=== PATIENT | male | born 1960 | race Caucasian/White ===

== ENCOUNTER 2017-07-21 13:52 | Inpatient (IN) | payer MEDICAID ==
[~2017-07-21] VITALS: Ht 180.3 cm; Wt 102.1 kg
[2017-07-21] MEDS ORDERED: FLUO20CA33 PO (14:09)
[2017-07-21] MEDS ORDERED: QUET25TA PO (14:09)
[2017-07-21] MEDS ORDERED: SODIUM CHLORIDE 0.9% 1,000 ML IV ONE (14:46)
[2017-07-21 15:27] LABS: HEMATOCRIT. 36.3 % (42.0-52.0); HEMOGLOBIN. 12.2 g/dL (14.0-18.0); MEAN CORPUSCULAR HEMOGLOBIN 29.2 pg (28.0-32.0); MEAN PLATELET VOLUME 8.8 fl (7.4-10.4); PLATELET 86 x1000/uL (130-400); RED BLOOD CELL COUNT 4.18 mill/uL (4.7-6.1); RED CELL DISTRIBUTION WIDTH 13.1 % (11.6-14.6)
[2017-07-21 15:32] LABS: CHLORIDE 108 mEq/L (98-107)
[2017-07-21 15:35] LABS: CARBON DIOXIDE 22 mEq/L (21-32); INR 1.3
[2017-07-21 15:42] LABS: ETHANOL BLOOD < 10 mg/dL; TROPONIN I < 0.02 ng/mL (0.00-0.04)
[2017-07-21 16:11] LABS: PLATELET ESTIMATE SLIGHTLY DECREASED
[2017-07-21] MEDS ORDERED: ONDANSETRON HCL 4MG/2ML VIAL IV ONE ×2 (17:15→19:45)
[2017-07-21] MEDS ORDERED: MORPHINE SULFATE 4 MG/ML CPJ (NOT FOR IM USE) IV ONE ×2 (17:15→19:45)
[2017-07-21 17:25] LABS: CLARITY URINE CLEAR (CLEAR); COLOR URINE YELLOW (YELLOW); GLUCOSE URINE NEGATIVE (NEGATIVE); KETONES URINE NEGATIVE (NEGATIVE); LEUKOCYTE ESTERASE URINE NEGATIVE (NEGATIVE); NITRITE URINE NEGATIVE (NEGATIVE); OCCULT BLOOD URINE NEGATIVE (NEGATIVE); PROTEIN URINE NEGATIVE (NEGATIVE); SPECIFIC GRAVITY URINE 1.007 (1.005-1.030)
[2017-07-22] VITALS (7 sets, daily range): BP systolic 110–124; BP diastolic 67–74
[2017-07-22] MEDS ORDERED: ONDANSETRON HCL 4MG/2ML VIAL IV PRN (05:15)
[2017-07-22] MEDS ORDERED: IPRATROPIUM/ALBUTEROL 0.5-3(2.5)MG/3ML NEB INH PRN (05:15)
[2017-07-22] MEDS ORDERED: GUAIFENESIN 200MG/10ML SUGAR FREE UDC PO PRN (05:15)
[2017-07-22] MEDS ORDERED: DIPHENHYDRAMINE 50MG/ML VIAL IV PRN (05:15)
[2017-07-22] MEDS ORDERED: ACETAMINOPHEN 325MG TABLET PO PRN (05:15)
[2017-07-22] MEDS: SODIUM CHLORIDE 0.9% INJ 3ML FLUSH IVF SCH ×3 (06:22→21:38)
[2017-07-22] MEDS ORDERED: MAGNESIUM HYDROXIDE 400MG/5ML 30ML UDC PO PRN (07:30)
[2017-07-22] MEDS ORDERED: QUETIAPINE FUMARATE 25MG TABLET PO SCH (09:00)
[2017-07-22] MEDS: HYDROCODONE/ACETAMINOPHEN 10/325MG TABLET PO PRN ×2 (13:00→19:57)
[2017-07-22] MEDS: FLUOXETINE HCL 20MG CAPSULE PO SCH (21:37)
[2017-07-22] MEDS: QUETIAPINE FUMARATE 100MG TABLET PO SCH (21:38)
[2017-07-23] VITALS: BP 112/78
[2017-07-23 04:00] VITALS: BP 126/72
[2017-07-23] MEDS: SODIUM CHLORIDE 0.9% INJ 3ML FLUSH IVF SCH ×3 (05:57→20:58)
[2017-07-23 08:00] VITALS: BP 112/70
[2017-07-23] MEDS: FLUOXETINE HCL 20MG CAPSULE PO SCH (09:12)
[2017-07-23] MEDS: HYDROCODONE/ACETAMINOPHEN 10/325MG TABLET PO PRN ×2 (09:12→21:01)
[2017-07-23 12:00] VITALS: BP 117/68
[2017-07-23 16:12] VITALS: BP 117/75
[2017-07-23 20:00] VITALS: BP 118/85
[2017-07-23] MEDS: QUETIAPINE FUMARATE 100MG TABLET PO SCH (20:58)
[2017-07-24] VITALS: BP 113/62
[2017-07-24 04:00] VITALS: BP 118/68
[2017-07-24] MEDS: SODIUM CHLORIDE 0.9% INJ 3ML FLUSH IVF SCH ×3 (06:00→21:35)
[2017-07-24] MEDS: FLUOXETINE HCL 20MG CAPSULE PO SCH (07:50)
[2017-07-24] MEDS: HYDROCODONE/ACETAMINOPHEN 10/325MG TABLET PO PRN ×3 (07:51→18:53)
[2017-07-24 08:00] VITALS: BP 116/71
[2017-07-24 12:00] VITALS: BP 121/74
[2017-07-24 17:27] VITALS: BP 109/68
[2017-07-24 20:00] VITALS: BP 101/60
[2017-07-24] MEDS: QUETIAPINE FUMARATE 100MG TABLET PO SCH (21:35)
[2017-07-25] VITALS: BP 99/59
[2017-07-25] MEDS: HYDROCODONE/ACETAMINOPHEN 10/325MG TABLET PO PRN ×3 (01:22→16:59)
[2017-07-25 04:00] VITALS: BP 96/60
[2017-07-25] MEDS: SODIUM CHLORIDE 0.9% INJ 3ML FLUSH IVF SCH ×3 (06:18→21:51)
[2017-07-25 08:00] VITALS: BP 99/51
[2017-07-25] MEDS: FLUOXETINE HCL 20MG CAPSULE PO SCH (09:12)
[2017-07-25 12:00] VITALS: BP 105/61
[2017-07-25] MEDS ORDERED: LACTULOSE 20G/30ML UDC PO NR (16:00)
[2017-07-25 19:03] VITALS: BP 112/66
[2017-07-25 20:00] VITALS: BP 111/65
[2017-07-25] MEDS: QUETIAPINE FUMARATE 100MG TABLET PO SCH (20:29)
[2017-07-26] VITALS (7 sets, daily range): BP systolic 106–111; BP diastolic 62–70
[2017-07-26] MEDS: HYDROCODONE/ACETAMINOPHEN 10/325MG TABLET PO PRN ×2 (00:13→09:12)
[2017-07-26] MEDS: SODIUM CHLORIDE 0.9% INJ 3ML FLUSH IVF SCH (05:53)
[2017-07-26] MEDS: FLUOXETINE HCL 20MG CAPSULE PO SCH (09:06)
== END 2017-07-26 15:25 | disposition home or self-care (01) | DRG 347 ==
LOC: ER 14:52 → 8WST 21:33 → CANRESERV 22:22 → ENRESERV 22:22 → CANRESERV 22:53 → ENRESERV 22:53 → EDBEDREQSVC 07-22 00:19 → ENRESERV 07-22 01:45
PROVIDERS: ADMIT Internal Medicine; ATTEND Internal Medicine
DX: S32.039A Unspecified fracture of third lumbar vertebra, initial encounter for closed fracture (principal); E44.0 Moderate protein-calorie malnutrition; E87.8 Other disorders of electrolyte and fluid balance, not elsewhere classified; I48.91 Unspecified atrial fibrillation; I10 Essential (primary) hypertension; F32.9 Major depressive disorder, single episode, unspecified; J44.9 Chronic obstructive pulmonary disease, unspecified; K21.9 Gastro-esophageal reflux disease without esophagitis; F41.9 Anxiety disorder, unspecified; F99 Mental disorder, not otherwise specified; B19.20 Unspecified viral hepatitis C without hepatic coma; Z79.899 Other long term (current) drug therapy; Z72.0 Tobacco use; Z95.0 Presence of cardiac pacemaker; Z85.05 Personal history of malignant neoplasm of liver; Z85.72 Personal history of non-Hodgkin lymphomas; Y08.89XA Assault by other specified means, initial encounter; Y92.512 Supermarket, store or market as the place of occurrence of the external cause; Y93.89 Activity, other specified; Y99.8 Other external cause status
CPT/HCPCS: 36415; 71010; 74176; 80053; 81003; 83605; 83880; 84484; 85025; 85610; 87040; 87086; 93005; 93970; 96374; 96375; 96376; 97116; 97162; 97166; 97530; 99285; G0482; J2270; J2405; J7030

== ENCOUNTER 2017-08-02 10:35 | Inpatient (IN) | payer MEDICAID ==
[~2017-08-02] VITALS: Ht 182.9 cm; Wt 72.6 kg
[~2017-08-02 10:35] MED LIST: FLUO20CA33 PO; QUET25TA PO
[2017-08-02] MEDS ORDERED: SODIUM CHLORIDE 0.9% 1000ML BAG (SEPSIS BOLUS) IV ONE (10:45)
[2017-08-02 11:21] LABS: BG CARBOXYHEMOGLOBIN 0.4 % (0.5-1.5); BG DEOXYHEMOGLOBIN 3.5 % (0.0-5.0); BG FRACTION INSPIRED OXYGEN 21; BG HCO3 ACT 19.7 mmol/L (22.0-26.0); BG METHEMOGLOBIN 0.1 % (0.0-1.5); BG OXYGEN SATURATION 96.5 % (92.0-98.5); BG PCO2 29.2 mmHg (35.0-45.0); BG PH 7.448 (7.350-7.450); BG SAMPLE SITE RIGHT BRACHIAL; BG VENT MODE ROOM AIR
[2017-08-02 11:35] LABS: HEMOGLOBIN. 13.5 g/dL (14.0-18.0); MEAN CORPUSCULAR HEMOGLOBIN 29.7 pg (28.0-32.0); MEAN CORPUSCULAR VOLUME 86.2 fL (80.0-94.0); PLATELET 114 x1000/uL (130-400); RED BLOOD CELL COUNT 4.53 mill/uL (4.7-6.1)
[2017-08-02 11:37] LABS: CHLORIDE 106 mEq/L (98-107)
[2017-08-02 11:38] LABS: INR 1.4; PARTIAL THROMBOPLASTIN TIME 25.3 sec (23.4-31.0)
[2017-08-02 11:47] LABS: CARBON DIOXIDE 24 mEq/L (21-32); ETHANOL BLOOD < 10 mg/dL; TROPONIN I < 0.02 ng/mL (0.00-0.04)
[2017-08-02 11:59] LABS: CLARITY URINE CLOUDY (CLEAR); COLOR URINE DARK YELLOW (YELLOW); GLUCOSE URINE NEGATIVE (NEGATIVE); KETONES URINE TRACE (NEGATIVE); LEUKOCYTE ESTERASE URINE TRACE (NEGATIVE); NITRITE URINE NEGATIVE (NEGATIVE); OCCULT BLOOD URINE 3+ (NEGATIVE); PROTEIN URINE NEGATIVE (NEGATIVE); SPECIFIC GRAVITY URINE 1.025 (1.005-1.030)
[2017-08-02] MEDS ORDERED: CEFTRIAXONE 1 G PREMIX 50 ML IV ONE (12:00)
[2017-08-02 12:14] LABS: *AMPHETAMINES SCREEN URINE NEGATIVE (NEGATIVE); *BARBITURATES SCREEN URINE NEGATIVE (NEGATIVE); *BENZODIAZEPINES SCREEN URINE NEGATIVE (NEGATIVE); *COCAINE SCREEN URINE NEGATIVE (NEGATIVE); CANNABINOID URINE SCREEN NEGATIVE (NEGATIVE); METHADONE URINE SCREEN NEGATIVE (NEGATIVE); OPIATES URINE SCREEN PRESUMTIVE POSITIVE (NEGATIVE); PHENCYCLIDINE URINE SCREEN NEGATIVE (NEGATIVE)
[2017-08-02] MEDS ORDERED: CEFTRIAXONE 1 G PREMIX 50 ML IV SCH (12:30)
[2017-08-02] MEDS ORDERED: ACETAMINOPHEN 325MG TABLET PO PRN (12:30)
[2017-08-02] MEDS ORDERED: ONDANSETRON HCL 4MG/2ML VIAL IV PRN (12:30)
[2017-08-02] MEDS ORDERED: LORAZEPAM 2MG/ML CPJ IV PRN (12:30)
[2017-08-02 12:32] LABS: PLATELET ESTIMATE SLIGHTLY DECREASED
[2017-08-02] MEDS ORDERED: LEVOFLOXACIN 500MG PREMIX 100 ML IV ONE (14:30)
[2017-08-02] MEDS ORDERED: LACTULOSE 20G/30ML UDC PO NR (15:15)
[2017-08-02 15:36] LABS: CREATINE KINASE 339 IU/L (39-308)
[2017-08-02 16:29] LABS: AMMONIA 72 uMol/L (<32)
[2017-08-02 20:00] VITALS: BP 139/78
[2017-08-02] MEDS ORDERED: MVI, ADULT NO.1 10 ML, FOLIC ACID 1 MG, THIAMINE HCL 100 MG in SODIUM CHLORIDE 0.9% 1,0... IV NR ×4 (20:00)
[2017-08-02] MEDS: FLUOXETINE HCL 20MG CAPSULE PO SCH (20:47)
[2017-08-02] MEDS: QUETIAPINE FUMARATE 25MG TABLET PO SCH (20:47)
[2017-08-02 22:16] VITALS: BP 139/78
[2017-08-03] VITALS: BP 132/79
[2017-08-03 00:26] LABS: CREATINE KINASE 250 IU/L (39-308)
[2017-08-03 04:00] VITALS: BP 131/72
[2017-08-03 06:16] LABS: HEMATOCRIT. 33.5 % (42.0-52.0); HEMOGLOBIN. 11.5 g/dL (14.0-18.0); MEAN CORPUSCULAR HEMOGLOBIN 29.8 pg (28.0-32.0); MEAN CORPUSCULAR VOLUME 86.6 fL (80.0-94.0); MEAN PLATELET VOLUME 9.4 fl (7.4-10.4); PLATELET 93 x1000/uL (130-400); RED BLOOD CELL COUNT 3.87 mill/uL (4.7-6.1); RED CELL DISTRIBUTION WIDTH 13.1 % (11.6-14.6)
[2017-08-03 06:38] LABS: CARBON DIOXIDE 21 mEq/L (21-32); CHLORIDE 112 mEq/L (98-107); LDL CHOLESTEROL 53 mg/dL (5-100)
[2017-08-03 06:47] LABS: HDL CHOLESTEROL 29 mg/dL (40-59)
[2017-08-03 07:46] VITALS: BP 136/78
[2017-08-03 09:57] LABS: T4 FREE 3.22 ng/dL (0.76-1.46)
[2017-08-03] MEDS: FLUOXETINE HCL 20MG CAPSULE PO SCH (10:00)
[2017-08-03] MEDS: CEFTRIAXONE 1 G PREMIX 50 ML IV SCH ×2 (10:00→10:51)
[2017-08-03 10:19] LABS: AMMONIA 65 uMol/L (<32)
[2017-08-03 10:57] LABS: FOLIC ACID (FOLATE) SERUM 13.9 ng/mL (>5.38)
[2017-08-03] MEDS: DEXT 5%/0.45% NACL KCL 20MEQ/L 1,000 ML IV SCH ×2 (10:58→23:02)
[2017-08-03 11:11] LABS: BG BASE EXCESS -0.7 mmol/L (-2.0-2.0); BG CARBOXYHEMOGLOBIN 0.4 % (0.5-1.5); BG DEOXYHEMOGLOBIN 3.9 % (0.0-5.0); BG FRACTION INSPIRED OXYGEN 21; BG HCO3 ACT 21.9 mmol/L (22.0-26.0); BG METHEMOGLOBIN 0.3 % (0.0-1.5); BG OXYGEN SATURATION 96.1 % (92.0-98.5); BG OXYHEMOGLOBIN 95.4 % (94.0-97.0); BG PCO2 29.9 mmHg (35.0-45.0); BG PH 7.483 (7.350-7.450); BG PO2 79.7 mmHg (75.0-100.0); BG SAMPLE SITE RIGHT BRACHIAL; BG TOTAL HEMOGLOBIN 12.2 g/dL (12.0-18.0); BG VENT MODE ROOM AIR
[2017-08-03 11:41] VITALS: BP 131/77
[2017-08-03] MEDS: METHIMAZOLE 5MG TABLET PO SCH ×2 (15:41→22:01)
[2017-08-03 16:36] LABS: HEPATITIS B SURFACE ANTIGEN NEGATIVE
[2017-08-03 17:04] LABS: HEPATITIS B CORE AB IGM NEGATIVE
[2017-08-03 17:06] LABS: HEPATITIS A AB IGM NEGATIVE (NEGATIVE)
[2017-08-03 17:56] LABS: PLATELET ESTIMATE DECREASED
[2017-08-03] MEDS: HYDROCODONE/ACETAMINOPHEN 5/325MG TABLET PO PRN ×2 (18:16→22:02)
[2017-08-03 19:32] LABS: T4 FREE 3.06 ng/dL (0.76-1.46)
[2017-08-03 20:00] VITALS: BP 119/74
[2017-08-03] MEDS: QUETIAPINE FUMARATE 25MG TABLET PO SCH (22:01)
[2017-08-03 22:59] LABS: CREATINE KINASE MB FRACTION 1.1 ng/mL (0.5-3.6); TROPONIN I 0.03 ng/mL (0.00-0.04)
[2017-08-04] VITALS: BP 119/74
[2017-08-04 04:00] VITALS: BP 134/81
[2017-08-04 06:28] LABS: HEMATOCRIT 31.9 % (42.0-52.0); HEMOGLOBIN 10.9 g/dL (14.0-18.0); MEAN CORPUSCULAR HEMOGLOBIN 29.7 pg (28.0-32.0); MEAN CORPUSCULAR VOLUME 86.8 fL (80.0-94.0); PLATELET 84 x1000/uL (130-400); RED BLOOD CELL COUNT 3.67 mill/uL (4.7-6.1); RED CELL DISTRIBUTION WIDTH 13.1 % (11.6-14.6)
[2017-08-04 06:39] LABS: CARBON DIOXIDE 24 mEq/L (21-32); CHLORIDE 109 mEq/L (98-107)
[2017-08-04 06:44] LABS: CREATINE KINASE 125 IU/L (39-308); CREATINE KINASE MB FRACTION 0.9 ng/mL (0.5-3.6); TROPONIN I < 0.02 ng/mL (0.00-0.04)
[2017-08-04] MEDS: METHIMAZOLE 5MG TABLET PO SCH ×3 (06:55→20:50)
[2017-08-04 08:00] VITALS: BP 119/73
[2017-08-04] MEDS: CEFTRIAXONE 1 G PREMIX 50 ML IV SCH (09:00)
[2017-08-04] MEDS: FLUOXETINE HCL 20MG CAPSULE PO SCH (09:28)
[2017-08-04] MEDS: DEXT 5%/0.45% NACL KCL 20MEQ/L 1,000 ML IV SCH ×2 (09:28→20:50)
[2017-08-04] MEDS: ASPIRIN 81MG TABLET PO SCH (09:28)
[2017-08-04] MEDS: HYDROCODONE/ACETAMINOPHEN 5/325MG TABLET PO PRN ×3 (09:37→21:18)
[2017-08-04] MEDS ORDERED: LACTULOSE 20G/30ML UDC PO SCH (10:15)
[2017-08-04 12:00] VITALS: BP 126/76
[2017-08-04] MEDS: POTASSIUM CHLORIDE INJ 40 MEQ in DEXT 5% WATER 250 ML IV SCH ×2 (12:41→12:44)
[2017-08-04 15:16] LABS: CREATINE KINASE 174 IU/L (39-308); TROPONIN I < 0.02 ng/mL (0.00-0.04)
[2017-08-04 16:00] VITALS: BP 121/75
[2017-08-04] MEDS ORDERED: IOHEXOL-350 100 ML BOTTLE ONE (18:05)
[2017-08-04 20:00] VITALS: BP 134/81
[2017-08-04] MEDS: QUETIAPINE FUMARATE 25MG TABLET PO SCH (20:51)
[2017-08-04] MEDS: IPRATROPIUM/ALBUTEROL 0.5-3(2.5)MG/3ML NEB INH PRN (21:32)
[2017-08-05] VITALS: BP 116/69
[2017-08-05 08:00] VITALS: BP 124/75
[2017-08-05] MEDS: ASPIRIN 81MG TABLET PO SCH (09:24)
[2017-08-05] MEDS: FLUOXETINE HCL 20MG CAPSULE PO SCH (09:24)
[2017-08-05] MEDS: CEFTRIAXONE 1 G PREMIX 50 ML IV SCH ×2 (09:25→11:47)
[2017-08-05] MEDS: HYDROCODONE/ACETAMINOPHEN 5/325MG TABLET PO PRN ×3 (09:35→22:34)
[2017-08-05 12:00] VITALS: BP 131/80
[2017-08-05] MEDS: METHIMAZOLE 5MG TABLET PO SCH ×2 (13:36→21:43)
[2017-08-05 14:30] LABS: HEMATOCRIT 34.1 % (42.0-52.0); HEMOGLOBIN 11.7 g/dL (14.0-18.0); MEAN CORPUSCULAR HEMOGLOBIN 29.6 pg (28.0-32.0); MEAN CORPUSCULAR VOLUME 86.3 fL (80.0-94.0); PLATELET 91 x1000/uL (130-400); RED BLOOD CELL COUNT 3.95 mill/uL (4.7-6.1); RED CELL DISTRIBUTION WIDTH 13.3 % (11.6-14.6)
[2017-08-05 14:43] LABS: CARBON DIOXIDE 24 mEq/L (21-32); CHLORIDE 110 mEq/L (98-107)
[2017-08-05 16:00] VITALS: BP 138/84
[2017-08-05 20:00] VITALS: BP 105/64
[2017-08-05] MEDS: DEXT 5%/0.45% NACL KCL 20MEQ/L 1,000 ML IV SCH (21:43)
[2017-08-05] MEDS: QUETIAPINE FUMARATE 25MG TABLET PO SCH (21:43)
[2017-08-06] VITALS: BP 118/74
[2017-08-06 04:00] VITALS: BP 111/63
[2017-08-06] MEDS: METHIMAZOLE 5MG TABLET PO SCH ×3 (06:26→22:31)
[2017-08-06 06:53] LABS: HEMATOCRIT 33.9 % (42.0-52.0); HEMOGLOBIN 11.7 g/dL (14.0-18.0); MEAN CORPUSCULAR HEMOGLOBIN 29.9 pg (28.0-32.0); MEAN CORPUSCULAR VOLUME 86.8 fL (80.0-94.0); PLATELET 98 x1000/uL (130-400); RED CELL DISTRIBUTION WIDTH 13.5 % (11.6-14.6)
[2017-08-06 06:57] LABS: CARBON DIOXIDE 24 mEq/L (21-32); CHLORIDE 110 mEq/L (98-107)
[2017-08-06 08:00] VITALS: BP 122/73
[2017-08-06] MEDS: ASPIRIN 81MG TABLET PO SCH (08:39)
[2017-08-06] MEDS: FLUOXETINE HCL 20MG CAPSULE PO SCH (08:39)
[2017-08-06] MEDS: CEFTRIAXONE 1 G PREMIX 50 ML IV SCH (08:39)
[2017-08-06] MEDS: HYDROCODONE/ACETAMINOPHEN 5/325MG TABLET PO PRN ×2 (08:50→20:07)
[2017-08-06] MEDS: DEXT 5%/0.45% NACL KCL 20MEQ/L 1,000 ML IV SCH ×3 (11:17→22:43)
[2017-08-06 11:33] VITALS: BP 124/79
[2017-08-06] MEDS: IPRATROPIUM/ALBUTEROL 0.5-3(2.5)MG/3ML NEB INH PRN (12:54)
[2017-08-06] MEDS: IPRATROPIUM/ALBUTEROL 0.5-3(2.5)MG/3ML NEB HHN SCH ×3 (12:54→20:24)
[2017-08-06] MEDS ORDERED: IPRATROPIUM/ALBUTEROL 0.5-3(2.5)MG/3ML NEB HHN PRN (13:00)
[2017-08-06] MEDS: PREDNISONE 20MG TABLET PO SCH (13:41)
[2017-08-06] MEDS: GUAIFENESIN 600MG ER TABLET PO SCH ×2 (13:41→22:21)
[2017-08-06 15:44] VITALS: BP 123/72
[2017-08-06 20:00] VITALS: BP 121/70
[2017-08-06] MEDS: QUETIAPINE FUMARATE 25MG TABLET PO SCH (22:26)
[2017-08-07] VITALS: BP 117/69
[2017-08-07] MEDS: IPRATROPIUM/ALBUTEROL 0.5-3(2.5)MG/3ML NEB HHN SCH ×6 (00:23→20:18)
[2017-08-07 04:00] VITALS: BP 136/83
[2017-08-07] MEDS: METHIMAZOLE 5MG TABLET PO SCH ×3 (07:14→21:39)
[2017-08-07 08:00] VITALS: BP 128/78
[2017-08-07 08:45] LABS: HEMATOCRIT 33.9 % (42.0-52.0); HEMOGLOBIN 11.6 g/dL (14.0-18.0); MEAN CORPUSCULAR HEMOGLOBIN 29.7 pg (28.0-32.0); MEAN CORPUSCULAR VOLUME 86.9 fL (80.0-94.0); PLATELET 102 x1000/uL (130-400); RED CELL DISTRIBUTION WIDTH 13.4 % (11.6-14.6)
[2017-08-07 09:13] LABS: CARBON DIOXIDE 22 mEq/L (21-32); CHLORIDE 108 mEq/L (98-107)
[2017-08-07] MEDS: CEFTRIAXONE 1 G PREMIX 50 ML IV SCH (09:35)
[2017-08-07] MEDS: PREDNISONE 20MG TABLET PO SCH (09:35)
[2017-08-07] MEDS: GUAIFENESIN 600MG ER TABLET PO SCH (09:35)
[2017-08-07] MEDS: FLUOXETINE HCL 20MG CAPSULE PO SCH (09:35)
[2017-08-07] MEDS: ASPIRIN 81MG TABLET PO SCH (09:35)
[2017-08-07] MEDS: HYDROCODONE/ACETAMINOPHEN 5/325MG TABLET PO PRN ×2 (09:36→21:50)
[2017-08-07 11:45] VITALS: BP 123/70
[2017-08-07] MEDS: DEXT 5%/0.45% NACL KCL 20MEQ/L 1,000 ML IV SCH ×2 (13:08→22:43)
[2017-08-07 16:02] VITALS: BP 123/71
[2017-08-07 20:00] VITALS: BP 113/73
[2017-08-07] MEDS: QUETIAPINE FUMARATE 25MG TABLET PO SCH (21:39)
[2017-08-08] VITALS: BP 122/80
[2017-08-08] MEDS: IPRATROPIUM/ALBUTEROL 0.5-3(2.5)MG/3ML NEB HHN SCH ×6 (00:22→21:01)
[2017-08-08 04:00] VITALS: BP 113/65
[2017-08-08] MEDS: GUAIFENESIN 600MG ER TABLET PO SCH ×3 (04:06→20:37)
[2017-08-08] MEDS: METHIMAZOLE 5MG TABLET PO SCH ×3 (07:02→22:05)
[2017-08-08 07:54] VITALS: BP 131/75
[2017-08-08] MEDS: CEFTRIAXONE 1 G PREMIX 50 ML IV SCH (09:16)
[2017-08-08] MEDS: DEXT 5%/0.45% NACL KCL 20MEQ/L 1,000 ML IV SCH ×2 (09:16→21:41)
[2017-08-08] MEDS: ASPIRIN 81MG TABLET PO SCH (09:17)
[2017-08-08] MEDS: PREDNISONE 20MG TABLET PO SCH (09:17)
[2017-08-08] MEDS: FLUOXETINE HCL 20MG CAPSULE PO SCH (09:17)
[2017-08-08] MEDS: HYDROCODONE/ACETAMINOPHEN 5/325MG TABLET PO PRN ×2 (11:11→20:38)
[2017-08-08 12:00] VITALS: BP 119/78
[2017-08-08 16:48] VITALS: BP 111/66
[2017-08-08 20:00] VITALS: BP 117/72
[2017-08-08] MEDS: QUETIAPINE FUMARATE 25MG TABLET PO SCH (20:37)
[2017-08-09] VITALS: BP 113/63
[2017-08-09] MEDS: IPRATROPIUM/ALBUTEROL 0.5-3(2.5)MG/3ML NEB HHN SCH ×4 (00:27→12:57)
[2017-08-09 04:00] VITALS: BP 125/69
[2017-08-09] MEDS: METHIMAZOLE 5MG TABLET PO SCH (05:57)
[2017-08-09 08:00] VITALS: BP 117/61
[2017-08-09 08:11] LABS: T4 FREE 2.32 ng/dL (0.76-1.46)
[2017-08-09] MEDS: PREDNISONE 20MG TABLET PO SCH (08:26)
[2017-08-09] MEDS: ASPIRIN 81MG TABLET PO SCH (08:26)
[2017-08-09] MEDS: GUAIFENESIN 600MG ER TABLET PO SCH (08:26)
[2017-08-09] MEDS: FLUOXETINE HCL 20MG CAPSULE PO SCH (08:26)
[2017-08-09] MEDS: HYDROCODONE/ACETAMINOPHEN 5/325MG TABLET PO PRN (08:30)
[2017-08-09] MEDS: CEFTRIAXONE 1 G PREMIX 50 ML IV SCH (08:45)
[2017-08-09 12:00] VITALS: BP 118/75
[2017-08-09 12:36] VITALS: BP 118/75
== END 2017-08-09 14:25 | disposition home health service (06) | DRG 720 ==
LOC: EDBEDREQ 10:48 → ER 10:52 → EDBEDREQTM 12:02 → EDBEDREQ 12:02 → INTOOBSV 17:11 → ENRESERV 17:11 → 6WST 17:11 → OBSVTOIN 17:11
PROVIDERS: ADMIT Family Medicine Adult Medicine; ATTEND Internal Medicine
PROC: 4A00X4Z Measurement of Central Nervous Electrical Activity, External Approach (ICD-10-PCS; principal; 2017-08-04)
DX: A41.9 Sepsis, unspecified organism (principal); G92 Toxic encephalopathy; E87.2 Acidosis; E46 Unspecified protein-calorie malnutrition; S32.039A Unspecified fracture of third lumbar vertebra, initial encounter for closed fracture; D69.6 Thrombocytopenia, unspecified; I11.9 Hypertensive heart disease without heart failure; I48.91 Unspecified atrial fibrillation; K74.60 Unspecified cirrhosis of liver; N39.0 Urinary tract infection, site not specified; J44.9 Chronic obstructive pulmonary disease, unspecified; B19.20 Unspecified viral hepatitis C without hepatic coma; E05.90 Thyrotoxicosis, unspecified without thyrotoxic crisis or storm; D64.9 Anemia, unspecified; K59.00 Constipation, unspecified; K80.20 Calculus of gallbladder without cholecystitis without obstruction; M85.80 Other specified disorders of bone density and structure, unspecified site; R16.1 Splenomegaly, not elsewhere classified; F99 Mental disorder, not otherwise specified; N40.0 Benign prostatic hyperplasia without lower urinary tract symptoms; Z85.72 Personal history of non-Hodgkin lymphomas; Z89.611 Acquired absence of right leg above knee; Z89.612 Acquired absence of left leg above knee; Z95.0 Presence of cardiac pacemaker; Z79.899 Other long term (current) drug therapy; Y08.89XA Assault by other specified means, initial encounter; Y93.89 Activity, other specified; Y92.89 Other specified places as the place of occurrence of the external cause; Y99.8 Other external cause status; Z68.21 Body mass index [BMI] 21.0-21.9, adult
CPT/HCPCS: 36415; 36600; 70450; 71010; 71275; 73130; 73630; 76536; 76700; 80053; 80061; 80305; 81001; 82140; 82375; 82550; 82553; 82607; 82746; 82805; 83036; 83520; 83605; 83880; 84439; 84443; 84481; 84484; 85025; 85027; 85379; 85610; 85730; 86376; 86705; 86709; 86803; 87040; 87086; 87340; 92610; 93005; 93306; 93970; 94640; 94664; 96365; 96366; 96368; 97110; 97116; 97162; 97166; 97530; 97535; 99291; G0482; J0696; J1956; J2060; J3411; J3480; J3490; J7030; J7060; J7512; J7620; Q9967; A4315

== ENCOUNTER 2019-05-17 09:54 | Emergency (ER) | payer MEDICAID ==
[~2019-05-17] VITALS: Ht 177.8 cm; Wt 100.0 kg
[2019-05-17] MEDS ORDERED: KETOROLAC 30MG/ML VIAL IV ONE (10:45)
[2019-05-17] MEDS ORDERED: MORPHINE SULFATE 4 MG/ML CPJ (NOT FOR IM USE) IV ONE ×2 (12:30→14:30)
[2019-05-17] MEDS ORDERED: ONDANSETRON HCL 4MG/2ML INJ IV ONE (12:30)
[2019-05-17 13:28] LABS: BASOPHILS % 0.4 % (0.0-2.0); CHLORIDE 108 mEq/L (98-107); EOSINOPHILS % 0.6 % (0.0-5.0); HEMATOCRIT. 41.9 % (42.0-52.0); HEMOGLOBIN. 14.4 g/dL (14.0-18.0); LYMPHOCYTES % 8.7 % (20.0-50.0); MEAN CORPUSCULAR HEMOGLOBIN 31.4 pg (28.0-32.0); MEAN CORPUSCULAR VOLUME 91.5 fL (80.0-94.0); MEAN PLATELET VOLUME 8.7 fl (7.4-10.4); MONOCYTES % 6.8 % (2.0-8.0); NEUTROPHILS % 83.5 % (40.0-76.0); PLATELET 83 x1000/uL (130-400); RED BLOOD CELL COUNT 4.58 mill/uL (4.7-6.1); RED CELL DISTRIBUTION WIDTH 14.6 % (11.6-14.6)
[2019-05-17 13:29] LABS: INR 1.2; PARTIAL THROMBOPLASTIN TIME 23.9 sec (23.4-31.0); PROTHROMBIN TIME 12.5 sec (9.6-11.0)
[2019-05-17 16:51] VITALS: BP 129/88
== END 2019-05-17 16:51 | disposition home or self-care (01) ==
LOC: ER 09:54
DX: S42.291A Other displaced fracture of upper end of right humerus, initial encounter for closed fracture (principal); W01.198A Fall on same level from slipping, tripping and stumbling with subsequent striking against other object, initial encounter; Y93.89 Activity, other specified; Y92.89 Other specified places as the place of occurrence of the external cause
CPT/HCPCS: 29105; 36415; 70450; 70486; 71045; 73060; 80053; 85025; 85610; 85730; 93005; 96374; 96375; 96376; 99284; J1885; J2270; J2405